=== PATIENT | male | born 1975 | race Caucasian/White ===

== ENCOUNTER 2020-07-01 07:11 | Day surgery (SDC) | payer MEDICAID ==
[~2020-07-01] VITALS: Ht 182.9 cm; Wt 80.5 kg
[~2020-07-01 07:11] MED LIST: NO HOME MEDS; ceFAZolin 2gm in dextrose, iso 50 ML IV ONE; famotidine 20mg tablet PO ONE; ringers solution, lacted 1,000 ML IV ONE; ringers solution, lacted 1,000 ML IV SCH
[2020-07-01 07:35] VITALS: BP 126/68
[2020-07-01 09:00] LABS: BASOPHILS # (AUTO) 0.1 X10'3 (0-0.2); EOSINOPHILS # (AUTO) 0.2 X10'3 (0-0.9); EOSINOPHILS % (AUTO) 3.5 % (0-6); HEMATOCRIT 47.6 % (42.0-52.0); HEMOGLOBIN 16.2 g/dl (14.0-17.9); LYMPHOCYTES # (AUTO) 1.2 X10'3 (1.1-4.8); LYMPHOCYTES % (AUTO) 21.8 % (21-51); MEAN CORPUSCULAR HEMOGLOBIN 31.6 PG (27.0-31.0); MEAN CORPUSCULAR HGB CONC 34.1 g/dL (33.0-36.5); MEAN CORPUSCULAR VOLUME 92.7 FL (78-98); MEAN PLATELET VOLUME 7.8 FL (7.4-10.4); MONOCYTES # (AUTO) 0.5 X10'3 (0-0.9); MONOCYTES % (AUTO) 8.7 % (2-12); NEUTROPHILS # (AUTO) 3.5 X10'3 (1.8-7.7); PLATELET COUNT 196 X10'3 (140-440); RED BLOOD COUNT 5.13 X10'6 (4.70-6.10); RED CELL DISTRIBUTION WIDTH 13.1 % (11.5-14.5); WHITE BLOOD COUNT 5.4 X10'3 (4.5-11.0)
[2020-07-01 09:15] LABS: ALANINE AMINOTRANSFERASE 26 U/L (12-78); ALBUMIN 3.9 G/DL (3.4-5.0); ALBUMIN/GLOBULIN RATIO 1.2 (1.1-1.5); ALKALINE PHOSPHATASE 85 IU/L (46-116); ANION GAP 6 (8-16); ASPARTATE AMINO TRANSFERASE 9 U/L (10-37); BILIRUBIN,TOTAL 0.4 MG/DL (0.1-1.0); BLOOD UREA NITROGEN 11 MG/DL (7-18); BUN/CREATININE RATIO 9.6 (5.4-32.0); CALCIUM 8.8 MG/DL (8.5-10.1); CHLORIDE 104 MMOL/L (99-107); CREATININE 1.15 MG/DL (0.60-1.10); GLUCOSE 96 MG/DL (70-104); SODIUM 138 MMOL/L (135-145); TOTAL CARBON DIOXIDE 27.9 MMOL/L (24-32); TOTAL PROTEIN 7.1 G/DL (6.4-8.2); eGFR 69 ML/MIN
[2020-07-01 09:16] LABS: POTASSIUM 4.5 MMOL/L (3.5-5.1)
[2020-07-01] MEDS ORDERED: hydrALAZINE 20mg/ml inj. IV PRN (09:35)
[2020-07-01] MEDS ORDERED: fentaNYL/PF 50MCG/1 ML 2ML syringe IV PRN ×2 (09:35)
[2020-07-01] MEDS ORDERED: morphine 4 MG/ML inj SYRINge IV PRN (09:35)
[2020-07-01] MEDS ORDERED: labetalol 20mg/4ml (5mg/ml) syringe IV PRN (09:35)
[2020-07-01] MEDS ORDERED: morphine 2 MG/ML inj. syringe IV PRN (09:35)
[2020-07-01] MEDS ORDERED: ringers solution, lacted 1,000 ML IV SCH (09:35)
[2020-07-01] MEDS ORDERED: ondansetron/PF 4mg/2ml inj IV PRN (09:35)
[2020-07-01] MEDS ORDERED: BUPIVAcaine/PF 2.5mg/ml (0.25%) 10ml vial ONE (12:32)
[2020-07-01] MEDS ORDERED: MIDAZolam 1mg/ml 10ml vial ONE (12:35)
[2020-07-01] MEDS ORDERED: fentaNYL/PF 50MCG/1 ML 2ML syringe ONE (12:35)
[2020-07-01] MEDS ORDERED: propofol inj 20 ML IV ONE (13:40)
[2020-07-01] MEDS ORDERED: ketorolac trometh. 30mg/ml inj. ONE (13:47)
[2020-07-01 13:56] VITALS: BP 122/78
--- NOTE | 2020-07-01 13:56 | NUR ---
Received from OR via [facility] , accompanied by Anesthesiologist ISIDORO and report given by Anesthesiolgist. PATIENT WITH SPLINT ON RIGHT UHAND THAT IS CDI. THUMB AND INDEX FINGER WITH NO DRAINAGE. + CAP REFILL, SENSATION AND MOVEMENT. 10L MASK ON WITH 100% SATURATIONS. Addendum: 07/01/20 at 1404 by Anthony Rose RN, RN Amended: Links added.
[2020-07-01 14:06] VITALS: BP 115/70
[2020-07-01 14:16] VITALS: BP 114/75
[2020-07-01 14:26] VITALS: BP 129/78
[2020-07-01 14:36] VITALS: BP 125/74
--- NOTE | 2020-07-01 14:46 | NUR ---
PATIENT VERBALIZED UNDERSTANDING, OPPORTUNITY TO ASK QUESTIONS GIVEN AND PATIENT COMFORTABLE WITH DC. IV TAKEN OUT WITHOUT COMPLICATION. PATIENT HAS MET ALL DC CRITERIA FOR DC HOME. I HAVE REVIEWED D/C INSTRUCTIONS WITH PATIENT. TAKEN OUT VIA WHEELCHAIR WHERE PATIENT WAS TAKEN HOME WITH ALL BELONGINGS. FAMILY GAVE PATIENT TRANSPORT HOME. DRESSING TO RIGHT WRIST IS CDI. Addendum: 07/01/20 at 1455 by Anthony Rose RN, RN Amended: Links added.
== END 2020-07-01 14:46 | disposition home or self-care (01) ==
LOC: PRE-OP 07:11 → PAS 14:46
PROVIDERS: ATTEND Orthopaedic Surgery Hand Surgery
DX: S66.124A Laceration of flexor muscle, fascia and tendon of right ring finger at wrist and hand level, initial encounter (principal); S66.126A Laceration of flexor muscle, fascia and tendon of right little finger at wrist and hand level, initial encounter; S64.01XA Injury of ulnar nerve at wrist and hand level of right arm, initial encounter; Z20.822 Contact with and (suspected) exposure to COVID-19; F17.290 Nicotine dependence, other tobacco product, uncomplicated; Z79.899 Other long term (current) drug therapy; W26.0XXA Contact with knife, initial encounter; Y93.89 Activity, other specified; Y92.89 Other specified places as the place of occurrence of the external cause; Y99.8 Other external cause status
CPT/HCPCS: 26356; 36415; 64831; 80053; 82948; 85025; 87426; 93005; J1885; J2250; J2704; J3010; J3490; A4215; A7000; J7120

== ENCOUNTER 2021-05-05 07:23 | Day surgery (SDC) | payer MEDICAID ==
[2021-05-02 09:52] LABS: BASOPHILS # (AUTO) 0.1 X10'3 (0-0.2); BASOPHILS % (AUTO) 0.7 % (0-1); EOSINOPHILS # (AUTO) 0.3 X10'3 (0-0.9); EOSINOPHILS % (AUTO) 3.3 % (0-6); LYMPHOCYTES # (AUTO) 1.4 X10'3 (1.1-4.8); LYMPHOCYTES % (AUTO) 17.4 % (21-51); MEAN CORPUSCULAR HEMOGLOBIN 33.3 PG (27.0-31.0); MEAN CORPUSCULAR HGB CONC 34.7 g/dL (33.0-36.5); MONOCYTES # (AUTO) 0.7 X10'3 (0-0.9); MONOCYTES % (AUTO) 8.9 % (2-12); NEUTROPHILS # (AUTO) 5.5 X10'3 (1.8-7.7); NEUTROPHILS % (AUTO) 69.7 % (42-75); PRE OP HEMATOCRIT 52.1 % (42.0-52.0); PRE OP PLATELET COUNT 218 X10'3 (140-440); RED BLOOD COUNT 5.43 X10'6 (4.70-6.10); RED CELL DISTRIBUTION WIDTH 13.1 % (11.5-14.5)
[2021-05-02 10:02] LABS: ALBUMIN 4.1 G/DL (3.4-5.0); ALBUMIN/GLOBULIN RATIO 1.2 (1.1-1.5); ALKALINE PHOSPHATASE 98 IU/L (46-116); BLOOD UREA NITROGEN 17 MG/DL (7-18); BUN/CREATININE RATIO 13.3 (5.4-32.0); CALCIUM 9.1 MG/DL (8.5-10.1); CREATININE 1.28 MG/DL (0.60-1.10); PRE OP ALT 48 U/L (30-65); PRE OP AST 12 U/L (10-37); PRE OP BILIRUB, TOTAL 0.4 MG/DL (0.0-1.0); PRE OP GLUCOSE 101 MG/DL (70-104); TOTAL CARBON DIOXIDE 27.8 MMOL/L (24-32); TOTAL PROTEIN 7.5 G/DL (6.4-8.2); eGFR 61 ML/MIN
[2021-05-02 10:09] LABS: PRE OP HEMOGLOBIN 18.1 g/dL (14.0-17.9)
[2021-05-02 11:04] LABS: CHLORIDE 105 MMOL/L (99-107); PRE OP POTASSIUM 5.1 MMOL/L (3.4-5.1)
[2021-05-02 11:06] LABS: PRE OP ANION GAP 8 (8-16); PRE OP SODIUM 141 MMOL/L (135-145)
[2021-05-05] VITALS (10 sets, daily range): BP systolic 121–147; BP diastolic 70–90
[~2021-05-05] VITALS: Ht 182.9 cm; Wt 88.4 kg
[~2021-05-05 07:23] MED LIST changes: +BUPIVAcaine/PF 2.5mg/ml (0.25%) 10ml vial ONE; -ceFAZolin 2gm in dextrose, iso 50 ML IV ONE; +cefazolin/dext.iso 2gm/50ml IV ONE; -ringers solution, lacted 1,000 ML IV ONE
[2021-05-05] MEDS ORDERED: fentaNYL/PF 50MCG/1 ML 2ML syringe ONE (11:48)
[2021-05-05] MEDS ORDERED: midazolam 1 mg/ML 2ml injection ONE (11:48)
[2021-05-05] MEDS ORDERED: LIDOcaine 0.5% (5mg/ml) 50ml vial ONE (11:51)
--- NOTE | 2021-05-05 12:47 | NUR ---
Received from OR via , accompanied by Anesthesiologist DR CARMICHAEL and report given by Anesthesiolgist. AWAKENS TO VOICE. VITALS STABLE. SPLINT DI. MICHAEL PAIN.
[2021-05-05] MEDS ORDERED: HYDROcodone/acetaminophen 10/325mg tab PO ONE (13:40)
[2021-05-05] MEDS ORDERED: meperidine/PF 25mg/ml syringe IV PRN (13:40)
[2021-05-05] MEDS ORDERED: ondansetron/PF 4mg/2ml inj IV PRN (13:40)
[2021-05-05] MEDS ORDERED: ringers solution, lacted 1,000 ML IV SCH (13:40)
[2021-05-05] MEDS: meperidine/PF 25mg/ml syringe IV PRN ×2 (13:43→13:52)
--- NOTE | 2021-05-05 14:17 | NUR ---
AWAKE AND ORIENTED. VITALS STABLE. DRESSING DI. STATES PAIN IMPROVING. HOME WITH HIS DAD AT THIS TIME.
== END 2021-05-05 14:17 | disposition home or self-care (01) ==
LOC: PAS 07:23
PROVIDERS: ATTEND Orthopaedic Surgery Hand Surgery
DX: M24.541 Contracture, right hand (principal); F17.210 Nicotine dependence, cigarettes, uncomplicated; Z20.822 Contact with and (suspected) exposure to COVID-19; Z79.899 Other long term (current) drug therapy; Z98.890 Other specified postprocedural states
CPT/HCPCS: 26440; 36415; 80053; 82948; 85025; 93005; A6222; J0690; J2175; J2250; J3010; J3490; J7030; J7120; U0003; U0005; Z7506; Z7512; A4215; A4618; A6449

== ENCOUNTER 2023-11-22 07:03 | Outpatient (CLI) | payer MEDICAID ==
[~2023-11-22 07:03] MED LIST changes: -BUPIVAcaine/PF 2.5mg/ml (0.25%) 10ml vial ONE; +GADOTERATE MEGLUMINE 7.5 MMOL/15 ML VIAL IV ONE; +LIDOcaine 1% (10mg/ml) 2ml vial ONE; +LIDOcaine 1% 30ml preserv. free vial ONE; -cefazolin/dext.iso 2gm/50ml IV ONE; -famotidine 20mg tablet PO ONE; +iohexol 300 MG/1 ML 50ml polymer ONE; -ringers solution, lacted 1,000 ML IV SCH
== END 2023-11-22 23:59 | disposition home or self-care (01) ==
LOC: RAD 07:03
PROVIDERS: ATTEND Pediatrics Sports Medicine
DX: S43.431A Superior glenoid labrum lesion of right shoulder, initial encounter (principal); M75.41 Impingement syndrome of right shoulder; M19.019 Primary osteoarthritis, unspecified shoulder; X58.XXXA Exposure to other specified factors, initial encounter; Y93.89 Activity, other specified; Y92.89 Other specified places as the place of occurrence of the external cause; Y99.8 Other external cause status
CPT/HCPCS: 23350; 73222; 77002; A9575; J3490; Q9967; 73040